=== PATIENT | female | born 1955 | race Caucasian/White ===

== ENCOUNTER 2023-06-22 21:57 | Emergency (ER) | payer BC ==
[2023-06-22 22:07] VITALS: BP 129/67; PULSE 78
== END 2023-06-22 23:03 | disposition home or self-care (01) ==
LOC: LL.ED 21:57
DX: S90.32XA Contusion of left foot, initial encounter (principal); E78.00 Pure hypercholesterolemia, unspecified; I10 Essential (primary) hypertension; E11.9 Type 2 diabetes mellitus without complications; E03.9 Hypothyroidism, unspecified; F17.210 Nicotine dependence, cigarettes, uncomplicated; Z79.84 Long term (current) use of oral hypoglycemic drugs; Z79.899 Other long term (current) drug therapy; W18.09XA Striking against other object with subsequent fall, initial encounter; Y93.01 Activity, walking, marching and hiking
CPT/HCPCS: 73620-LT; 99283

== ENCOUNTER 2025-02-19 01:18 | Inpatient (IN) | payer MEDICARE ==
[2025-02-19] MEDS ORDERED: Ondansetron 4 MG/2 ML SDV IVPUSH PRN (01:28)
[2025-02-19] MEDS: Lactated Ringers 1,000 ML IV ONE ×3 (01:30→06:13)
[2025-02-19 02:06] LABS: BASOPHILS ABSOLUTE AUTO 0.01 K/uL (0.00-0.20); BASOPHILS PERCENT AUTO 0.1 % (0.0-2.0); HEMATOCRIT 28.9 % (34.0-46.0); HEMOGLOBIN 10.7 g/dL (11.7-15.5); IMMATURE GRAN ABSOLUTE AUTO 0.09 10^3/uL (0.00-0.04); IMMATURE GRAN PERCENT AUTO 0.6 % (0.0-0.4); LYMPHOCYTES ABSOLUTE AUTO 1.96 K/uL (0.50-3.50); MEAN CORPUSCULAR HEMOGLOBIN 38.1 pg (28.2-33.3); MEAN CORPUSCULAR VOLUME 102.8 fL (84.0-98.0); MONOCYTES ABSOLUTE AUTO 0.82 K/uL (0.00-1.00); MONOCYTES PERCENT AUTO 5.4 % (2.0-14.0); NEUTROPHILS PERCENT AUTO 80.9 % (45.0-80.0); PLATELET COUNT,PLT 171 K/uL (150-350); RED BLOOD CELL COUNT 2.81 M/uL (3.77-5.09); RED CELL DISTRIBUTION WIDTH 17.9 % (11.2-14.1); WHITE BLOOD CELL COUNT,WBC 15.1 K/uL (4.0-10.2)
[2025-02-19 02:22] LABS: INR 1.1 (0.9-1.1); PROTHROMBIN TIME 10.7 SEC (9.0-11.1)
[2025-02-19 02:26] LABS: ALANINE AMINOTRANSFERASE,ALT 39 U/L (12-78); ALBUMIN 1.6 g/dL (3.4-5.0); ALKALINE PHOSPHATASE 117 IU/L (46-116); ANION GAP 19.9 meq/L (7-15); ASPARTATE AMNIOTRANSFERASE,AST 72 U/L (15-37); BILIRUBIN TOTAL 0.5 mg/dL (0.2-1.0); BLOOD UREA NITROGEN,BUN 40 mg/dL (7-18); CALCIUM 7.7 mg/dL (8.5-10.1); CARBON DIOXIDE,CO2 17.8 mmol/L (21.0-32.0); CHLORIDE,CL 96 mmol/L (98-107); GLUCOSE RANDOM 108 mg/dL (70-99); MAGNESIUM 2.2 mg/dL (1.8-2.4); POTASSIUM,K 4.7 mmol/L (3.5-5.1); PROTEIN TOTAL,TP 4.6 g/dL (6.4-8.2); SODIUM,NA 129 mmol/L (136-145)
[2025-02-19 02:27] LABS: CREATININE 3.33 mg/dL (0.51-1.17); ESTIMATED GFR 14 mL/min (>=60)
[2025-02-19] MEDS ORDERED: Acetaminophen 325 MG Tab PO PRN (03:34)
[2025-02-19] MEDS ORDERED: Cyclobenzaprine 10 MG Tab PO PRN (03:38)
[2025-02-19] MEDS ORDERED: ALPRAZolam 0.25 MG Tab PO PRN (03:38)
[2025-02-19] MEDS ORDERED: Meclizine 25 MG Tab PO PRN (03:38)
[2025-02-19] MEDS: Aspirin 81 MG Tab.Chew PO SCH (07:44)
[2025-02-19] MEDS: Nicotine 14 MG/24 Hr Patch TRDERM SCH (07:45)
[2025-02-19] MEDS ORDERED: Cefepime 2 GM Vial IVPUSH ONE (07:56)
[2025-02-19] MEDS: Norepinephrine Bit/D5W Premix 250 ML IV SCH (08:40)
[2025-02-19] MEDS: Carvedilol 25 MG Tab PO SCH (08:42)
[2025-02-19 08:52] LABS: BASE EXCESS VENOUS -8 mmol/L ((-2)-3); BICARBONATE,VENOUS 17 mmol/L (23-28); O2 DELIVERY DEVICE ROOM AIR; O2 SATURATION VENOUS 94 %; PCO2 VENOUS 30 mmHG (41-51); PH,VENOUS 7.36 (7.31-7.41); PO2 VENOUS 74 mmHG
[2025-02-19 09:04] LABS: BASOPHILS ABSOLUTE AUTO 0.02 K/uL (0.00-0.20); BASOPHILS PERCENT AUTO 0.1 % (0.0-2.0); HEMATOCRIT 27.9 % (34.0-46.0); HEMOGLOBIN 10.3 g/dL (11.7-15.5); IMMATURE GRAN ABSOLUTE AUTO 0.12 10^3/uL (0.00-0.04); IMMATURE GRAN PERCENT AUTO 0.7 % (0.0-0.4); LYMPHOCYTES ABSOLUTE AUTO 2.22 K/uL (0.50-3.50); LYMPHOCYTES PERCENT AUTO 13.2 % (10.0-50.0); MEAN CORPUSCULAR HEMOGLOBIN 37.7 pg (28.2-33.3); MEAN CORPUSCULAR HGB CONC 36.9 g/dL (31.7-36.0); MEAN CORPUSCULAR VOLUME 102.2 fL (84.0-98.0); MONOCYTES ABSOLUTE AUTO 0.98 K/uL (0.00-1.00); MONOCYTES PERCENT AUTO 5.8 % (2.0-14.0); NEUTROPHILS ABSOLUTE AUTO 13.46 K/uL (1.40-7.00); NEUTROPHILS PERCENT AUTO 80.2 % (45.0-80.0); PLATELET COUNT,PLT 89 K/uL (150-350); RED BLOOD CELL COUNT 2.73 M/uL (3.77-5.09); RED CELL DISTRIBUTION WIDTH 17.5 % (11.2-14.1); WHITE BLOOD CELL COUNT,WBC 16.8 K/uL (4.0-10.2)
[2025-02-19 09:07] LABS: LACTIC ACID 3.2 mmol/L (0.4-2.0)
[2025-02-19 09:15] LABS: ALBUMIN 1.4 g/dL (3.4-5.0); BILIRUBIN TOTAL 0.5 mg/dL (0.2-1.0); CALCIUM 7.5 mg/dL (8.5-10.1); CARBON DIOXIDE,CO2 17.4 mmol/L (21.0-32.0); CREATININE 2.95 mg/dL (0.51-1.17); EST CRCL DRUG DOSING (CG) 12.93 mL/min; POTASSIUM,K 5.3 mmol/L (3.5-5.1); PROTEIN TOTAL,TP 4.2 g/dL (6.4-8.2)
[2025-02-19 09:17] LABS: ANION GAP 19.9 meq/L (7-15)
[2025-02-19 09:17] LABS: TSH ULTRASENSITIVE 2.295 mIU/mL (0.358-3.740)
[2025-02-19 09:18] LABS: PRO B-TYPE NATRIUR PEPT,BNPPRO 3590 pg/mL (0-125)
[2025-02-19] MEDS: Lactated Ringers 1,000 ML IV SCH (09:22)
[2025-02-19] MEDS: Gabapentin 300 MG Cap PO SCH (09:30)
[2025-02-19] MEDS: Cefepime 2 GM Vial IVPUSH ONE (09:52)
[2025-02-19] MEDS: Sodium Chloride 0.9% 10 ML Syringe FLUSH PRN (09:52)
[2025-02-19 10:03] VITALS: BP 80/47
[2025-02-19 10:05] VITALS: PULSE 74
[2025-02-19 10:09] LABS: APPEARANCE,URINE CLOUDY; BILIRUBIN,URINE SMALL (NEGATIVE); COLOR,URINE DARK YELLOW; GLUCOSE,URINE NEGATIVE (NEGATIVE); KETONES,URINE NEGATIVE (NEGATIVE); LEUKOCYTE ESTERASE,URINE NEGATIVE (NEGATIVE); NITRITE,URINE NEGATIVE (NEGATIVE); OCCULT BLOOD,URINE TRACE-INTACT (NEGATIVE); PH,URINE 5.5 (5.0-9.0); PROTEIN,URINE NEGATIVE (NEGATIVE); UROBILINOGEN,URINE 0.2 E.U./dL (0.2-1.0)
[2025-02-19 10:17] LABS: BACTERIA,URINE FEW /HPF (NONE TO FEW); MUCUS,URINE MANY /LPF (NEGATIVE); RBC,URINE 0-5 /HPF; WBC,URINE 0-5 /HPF
== END 2025-02-19 10:30 | DRG 872 ==
LOC: LL.ED 01:18 → LL.MS 03:25
PROVIDERS: ADMIT Physician Assistant; ATTEND Physician Assistant
DX: A41.9 Sepsis, unspecified organism (principal); E87.1 Hypo-osmolality and hyponatremia; Z66 Do not resuscitate; R79.89 Other specified abnormal findings of blood chemistry; E78.00 Pure hypercholesterolemia, unspecified; I10 Essential (primary) hypertension; F41.9 Anxiety disorder, unspecified; F32.A Depression, unspecified; F17.200 Nicotine dependence, unspecified, uncomplicated; Z79.82 Long term (current) use of aspirin; E11.9 Type 2 diabetes mellitus without complications; E03.9 Hypothyroidism, unspecified; E86.0 Dehydration; I95.9 Hypotension, unspecified; Z79.899 Other long term (current) drug therapy; Z79.84 Long term (current) use of oral hypoglycemic drugs; Z72.0 Tobacco use
CPT/HCPCS: 36415; 51702; 71045; 80053; 81001; 82533; 82550; 82803; 82947; 83605; 83735; 83880; 84443; 84484; 85025; 85610; 87040; 93005; 93010; 96360; 96361; 99236; 99285-25; A9270-GY; J0692; J7120

== ENCOUNTER 2025-02-26 10:10 | Inpatient (IN) | payer MEDICARE ==
[2025-02-26] MEDS: Sennosides/Docusate Sodium 50-8.6 MG Tab PO SCH (17:02)
[2025-02-26] MEDS: Nystatin Topical Powder 15 GM Bottle TOP SCH (17:04)
[2025-02-26] MEDS: Ondansetron 4 MG Tab.DIS PO SCH (17:16)
[2025-02-27 07:44] LABS: BLOOD UREA NITROGEN,BUN 13.0 mg/dL (7-18); CARBON DIOXIDE,CO2 23.8 mmol/L (21.0-32.0); CHLORIDE,CL 104.0 mmol/L (98-107); CREATININE 0.63 mg/dL (0.51-1.17); EST CRCL DRUG DOSING (CG) 60.54 mL/min; GLUCOSE RANDOM 78.0 mg/dL (70-99); POTASSIUM,K 3.5 mmol/L (3.5-5.1); SODIUM,NA 136.0 mmol/L (136-145)
[2025-02-27 07:57] LABS: ESTIMATED GFR 96.0 mL/min (>=60)
[2025-02-27] MEDS: Cholecalciferol (Vitamin D3) 25 MCG Tab PO SCH (08:05)
[2025-02-27] MEDS: Fish Oil/Omega-3 Fatty Acids 1 Gm Cap PO SCH (08:06)
[2025-02-27] MEDS: Potassium Chloride 20 MEQ Tab.ER PO SCH (08:08)
[2025-02-27] MEDS: Calcium Carbonate/Vitamin D3 1500 MG-400 Units Tab PO SCH (09:24)
[2025-02-27] MEDS: Nystatin Topical Powder 15 GM Bottle TOP SCH (19:52)
[2025-03-01 11:00] LABS: BLOOD UREA NITROGEN,BUN 10.0 mg/dL (7-18); CARBON DIOXIDE,CO2 24.1 mmol/L (21.0-32.0); CHLORIDE,CL 106.0 mmol/L (98-107); CREATININE 0.73 mg/dL (0.51-1.17); EST CRCL DRUG DOSING (CG) 52.24 mL/min; GLUCOSE RANDOM 190.0 mg/dL (70-99); POTASSIUM,K 4.2 mmol/L (3.5-5.1); SODIUM,NA 136.0 mmol/L (136-145)
[2025-03-01 11:01] LABS: ESTIMATED GFR 89.0 mL/min (>=60)
[2025-03-02] MEDS: Ondansetron 4 MG Tab.DIS PO PRN (20:26)
[2025-03-05 11:51] LABS: UIBC <55 ug/dL (155-355)
[2025-03-08 11:20] VITALS: BP 137/67; PULSE 76
== END 2025-03-08 11:15 | DRG 948 ==
LOC: LL.MS 13:18 → LL.SWG 02-28 20:46
PROVIDERS: ADMIT Emergency Medicine; ATTEND Emergency Medicine
DX: R53.81 Other malaise (principal); H54.7 Unspecified visual loss; Z66 Do not resuscitate; E78.00 Pure hypercholesterolemia, unspecified; I10 Essential (primary) hypertension; K21.9 Gastro-esophageal reflux disease without esophagitis; M19.90 Unspecified osteoarthritis, unspecified site; M54.9 Dorsalgia, unspecified; G89.29 Other chronic pain; F41.9 Anxiety disorder, unspecified; F32.A Depression, unspecified; E11.9 Type 2 diabetes mellitus without complications; E03.9 Hypothyroidism, unspecified; M85.80 Other specified disorders of bone density and structure, unspecified site; F17.200 Nicotine dependence, unspecified, uncomplicated; M48.061 Spinal stenosis, lumbar region without neurogenic claudication; K59.00 Constipation, unspecified; D64.9 Anemia, unspecified; I95.9 Hypotension, unspecified; R22.31 Localized swelling, mass and lump, right upper limb; S50.11XA Contusion of right forearm, initial encounter; G31.84 Mild cognitive impairment of uncertain or unknown etiology; Z79.899 Other long term (current) drug therapy; Z79.84 Long term (current) use of oral hypoglycemic drugs; Z90.89 Acquired absence of other organs; Z90.49 Acquired absence of other specified parts of digestive tract; Z98.890 Other specified postprocedural states; Z98.51 Tubal ligation status; Z79.890 Hormone replacement therapy
CPT/HCPCS: 36415; 51702; 51798; 80048; 82272; 82607; 82728; 82947; 83540; 83550; 83735; 85014; 85018; 86850; 86900; 86901; 86920; 86922; 92610-GN; 93931-RT; 97110-GO; 97110-GP; 97129-GO; 97162-GP; 97165-GO; 97530-GO; 97530-GP; 97535-GO; 99306; 99307; 99316; A9270-GY; J1650; U0002

== ENCOUNTER 2025-04-18 10:50 | Emergency (ER) | payer BC, MEDICARE ==
[2025-04-18 11:37] LABS: BASOPHILS ABSOLUTE AUTO 0.06 K/uL (0.00-0.20); BASOPHILS PERCENT AUTO 0.6 % (0.0-2.0); EOSINOPHILS ABSOLUTE AUTO 0.11 K/uL (0.00-0.50); EOSINOPHILS PERCENT AUTO 1.2 % (0.0-5.0); IMMATURE GRAN ABSOLUTE AUTO 0.05 10^3/uL (0.00-0.04); IMMATURE GRAN PERCENT AUTO 0.5 % (0.0-0.4); LYMPHOCYTES ABSOLUTE AUTO 1.68 K/uL (0.50-3.50); LYMPHOCYTES PERCENT AUTO 17.8 % (10.0-50.0); MONOCYTES ABSOLUTE AUTO 0.81 K/uL (0.00-1.00); MONOCYTES PERCENT AUTO 8.6 % (2.0-14.0); NEUTROPHILS ABSOLUTE AUTO 6.71 K/uL (1.40-7.00); NEUTROPHILS PERCENT AUTO 71.3 % (45.0-80.0); PLATELET COUNT,PLT 251 K/uL (150-350); RED BLOOD CELL COUNT 2.97 M/uL (3.77-5.09); RED CELL DISTRIBUTION WIDTH 14.0 % (11.2-14.1); WHITE BLOOD CELL COUNT,WBC 9.4 K/uL (4.0-10.2)
[2025-04-18 12:18] LABS: ALANINE AMINOTRANSFERASE,ALT 8 U/L (12-78); ASPARTATE AMNIOTRANSFERASE,AST 18 U/L (15-37); BILIRUBIN TOTAL 0.3 mg/dL (0.2-1.0); BLOOD UREA NITROGEN,BUN 10 mg/dL (7-18); CARBON DIOXIDE,CO2 29.3 mmol/L (21.0-32.0); CHLORIDE,CL 98 mmol/L (98-107); CREATININE 0.71 mg/dL (0.51-1.17); GLUCOSE RANDOM 167 mg/dL (70-99); POTASSIUM,K 4.7 mmol/L (3.5-5.1); PROTEIN TOTAL,TP 5.7 g/dL (6.4-8.2); SODIUM,NA 127 mmol/L (136-145); TSH ULTRASENSITIVE 1.333 mIU/mL (0.358-3.740)
[2025-04-18 12:39] LABS: ESTIMATED GFR 92 mL/min (>=60)
[2025-04-18] MEDS: Bacitracin Oint 1 GM U/D Packet TOP ONE (12:52)
[2025-04-18 14:44] VITALS: BP 166/78; PULSE 79
== END 2025-04-18 13:30 ==
LOC: LL.ED 10:50
DX: S01.01XA Laceration without foreign body of scalp, initial encounter (principal); E87.1 Hypo-osmolality and hyponatremia; I10 Essential (primary) hypertension; E78.00 Pure hypercholesterolemia, unspecified; K21.9 Gastro-esophageal reflux disease without esophagitis; E11.9 Type 2 diabetes mellitus without complications; E03.9 Hypothyroidism, unspecified; Z90.49 Acquired absence of other specified parts of digestive tract; Z79.84 Long term (current) use of oral hypoglycemic drugs; Z79.890 Hormone replacement therapy; Z79.899 Other long term (current) drug therapy; W01.198A Fall on same level from slipping, tripping and stumbling with subsequent striking against other object, initial encounter
CPT/HCPCS: 12001; 36415; 70450; 80053; 83735; 84443; 85025; 93005; 99284; A9270-GY

== ENCOUNTER 2025-04-21 11:07 | Emergency (ER) | payer MEDICARE ==
[2025-04-21 12:18] LABS: BLOOD UREA NITROGEN,BUN 14 mg/dL (7-18); CARBON DIOXIDE,CO2 28.2 mmol/L (21.0-32.0); CHLORIDE,CL 102 mmol/L (98-107); CREATININE 0.78 mg/dL (0.51-1.17); GLUCOSE RANDOM 118 mg/dL (70-99); POTASSIUM,K 4.7 mmol/L (3.5-5.1); SODIUM,NA 137 mmol/L (136-145); TSH ULTRASENSITIVE 1.994 mIU/mL (0.358-3.740)
[2025-04-21 12:20] LABS: ESTIMATED GFR 82 mL/min (>=60)
[2025-04-21] MEDS: Magnesium Sulfat/D5W 1GM/100ML 1 GM in Premix Bag 1 BAG IV ONE (13:13)
[2025-04-21] MEDS ORDERED: Sodium Chloride 0.9% 10 ML Syringe FLUSH PRN (13:15)
[2025-04-21 15:22] VITALS: BP 152/73; PULSE 67
== END 2025-04-21 15:30 ==
LOC: LL.ED 11:07
DX: S32.511A Fracture of superior rim of right pubis, initial encounter for closed fracture (principal); E83.42 Hypomagnesemia; I10 Essential (primary) hypertension; E78.00 Pure hypercholesterolemia, unspecified; K21.9 Gastro-esophageal reflux disease without esophagitis; E11.9 Type 2 diabetes mellitus without complications; E03.9 Hypothyroidism, unspecified; F17.210 Nicotine dependence, cigarettes, uncomplicated; Z79.899 Other long term (current) drug therapy; Z79.84 Long term (current) use of oral hypoglycemic drugs; W18.39XA Other fall on same level, initial encounter; Y93.89 Activity, other specified
CPT/HCPCS: 36415; 72192; 80048; 83735; 84443; 96365; 99284; A9270; J3475